=== PATIENT | female | born 1965 | race Caucasian/White ===

== ENCOUNTER 2019-10-03 22:01 | Emergency (ER) | payer SELFPAY ==
[~2019-10-03] VITALS: Ht 170.2 cm; Wt 136.4 kg
[2019-10-03 22:15] VITALS: Ht 170.2 cm; Wt 136.4 kg
[2019-10-03] MEDS ORDERED: GLUCOPHAGE500 MG PO (22:18)
[2019-10-03 22:53] LABS: BASOPHILS 0.5 % (0-2); EOSINOPHILS 1.3 % (0-7); HEMATOCRIT 40.2 % (36.0-48.0); HEMOGLOBIN 13.2 g/dL (12-16); IMMATURE GRANULOCYTES 0.3 % (0-5); LYMPHOCYTES 46.2 % (15-50); MCH 30.5 pg (26.0-34.0); MCHC 32.8 g/dL (31.0-37.0); MCV 92.8 fL (80.0-100.0); MEAN PLATELET VOLUME 9.6 fL (7.4-10.4); MONOCYTES 7.3 % (2-11); NEUTROPHILS 44.4 % (40-80); PLATELET COUNT 245 10x3/uL (130-400); RBC 4.33 10x6/uL (4.00-5.40); RDW 13.5 % (11.5-14.5); WBC 6.2 10x3/uL (4.8-10.8)
[2019-10-03 23:01] LABS: ANION GAP 9.2 mmol/L (8-16); CALCIUM 8.8 mg/dL (8.5-10.1); CARBON DIOXIDE 28.7 mmol/L (21.0-32.0); CREATININE - SERUM 0.9 mg/dL (0.6-1.3); POTASSIUM - SERUM 3.9 mmol/L (3.5-5.1)
[2019-10-03 23:15] LABS: ALBUMIN 3.2 g/dL (3.4-5.0); BILIRUBIN - TOTAL 0.38 mg/dL (0.2-1.3); C-REACTIVE PROTEIN 1.3 mg/dL (0.0-0.9); PROTEIN - SERUM 6.6 g/dL (6.4-8.2); THYROID STIMULATING HORMONE 1.97 uIU/mL (0.36-3.74)
[2019-10-03] MEDS ORDERED: ATARAX 25 MG TA25 MG PO (23:35)
[2019-10-03] MEDS ORDERED: KEFLEX500 MG PO (23:35)
[2019-10-03 23:48] LABS: BILIRUBIN NEGATIVE (NEGATIVE); GLUCOSE NEGATIVE (NEGATIVE); KETONE NEGATIVE (NEGATIVE); NITRITE NEGATIVE (NEGATIVE); SPECIFIC GRAVITY 1.015 (1.005-1.020); UROBILINOGEN NORMAL (NORMAL)
[2019-10-03 23:49] LABS: BACTERIA MODERATE /hpf (NEGATIVE); EPITHELIAL CELLS 0-5 /hpf (0-5); RED CELLS - URINE NONE SEEN /hpf (0-5); WHITE CELLS - URINE 0-5 /hpf (NEGATIVE)
[2019-10-04 00:36] VITALS: BP 165/88
== END 2019-10-04 00:36 | disposition home or self-care (01) ==
LOC: D.ER 22:01
PROVIDERS: Family Medicine
DX: R21 Rash and other nonspecific skin eruption (principal); L29.9 Pruritus, unspecified; L08.9 Local infection of the skin and subcutaneous tissue, unspecified; E11.9 Type 2 diabetes mellitus without complications; Z79.84 Long term (current) use of oral hypoglycemic drugs

== ENCOUNTER 2019-10-18 21:41 | Emergency (ER) | payer SELFPAY ==
[~2019-10-18] VITALS: Ht 170.2 cm; Wt 136.4 kg
[~2019-10-18 21:41] MED LIST: ATARAX 25 MG TA25 MG PO; GLUCOPHAGE500 MG PO; KEFLEX500 MG PO
[2019-10-18 21:57] VITALS: Ht 170.2 cm; Wt 136.4 kg
[2019-10-19] MEDS ORDERED: HYDROXYZINE HCL50 MG PO (01:30)
[2019-10-19] MEDS ORDERED: CLINDAMYCIN HC300 MG PO (01:30)
[2019-10-19 01:44] VITALS: BP 145/89
== END 2019-10-19 01:45 | disposition home or self-care (01) ==
LOC: D.ER 21:41
DX: T14.8XXA Other injury of unspecified body region, initial encounter (principal); L08.9 Local infection of the skin and subcutaneous tissue, unspecified